=== PATIENT | male | born 1950 | race Caucasian/White ===

== ENCOUNTER 2018-09-11 08:58 | Emergency (ER) | payer MEDICARE, BC ==
[~2018-09-11] VITALS: Ht 170.2 cm; Wt 75.0 kg
[2018-09-11 09:27] LABS: BASOPHILS % (AUTO) 0 % (0-1); EOSINOPHILS # (AUTO) 0.1 X10'3 (0-0.9); EOSINOPHILS % (AUTO) 1.1 % (0-6); HEMATOCRIT 46.3 % (42.0-52.0); HEMOGLOBIN 15.5 g/dl (14.0-17.9); LYMPHOCYTES # (AUTO) 0.9 X10'3 (1.1-4.8); LYMPHOCYTES % (AUTO) 7.7 % (21-51); MEAN CORPUSCULAR HEMOGLOBIN 30.9 PG (27.0-31.0); MEAN CORPUSCULAR HGB CONC 33.5 % (33.0-36.5); MEAN CORPUSCULAR VOLUME 92.3 FL (78-98); MEAN PLATELET VOLUME 9.2 FL (7.4-10.4); MONOCYTES # (AUTO) 0.4 X10'3 (0-0.9); MONOCYTES % (AUTO) 3.9 % (2-12); NEUTROPHILS # (AUTO) 9.7 X10'3 (1.8-7.7); NEUTROPHILS % (AUTO) 87.3 % (42-75); PLATELET COUNT 232 X10'3 (140-440); RED BLOOD COUNT 5.02 X10'6 (4.70-6.10); RED CELL DISTRIBUTION WIDTH 13.3 % (11.5-14.5); WHITE BLOOD COUNT 11.2 X10'3 (4.5-11.0)
[2018-09-11 09:30] LABS: CLARITY,URINE CLEAR (Clear); COLOR,URINE YELLOW (Yellow); GLUCOSE, URINE NEGATIVE (Neg); KETONES,URINE NEGATIVE (Neg); LEUKOCYTE ESTERASE ,URINE NEGATIVE (Neg); NITRITES, URINE NEGATIVE (Neg); OCCULT BLOOD,URINE SMALL (Neg); PH,URINE 5.5 (4.8-8.0); PROTEIN,URINE NEGATIVE (Neg); UROBILINOGEN,URINE 0.2 E.U/dL (0.2-1.0)
[2018-09-11 09:33] LABS: UA COLLECTION TYPE VOIDED
[2018-09-11 09:35] LABS: BACTERIA,URINE FEW /HPF (Neg); HYALINE CASTS 0-3 /LPF (NEGATIVE); MUCUS STRANDS FEW /LPF (Neg); SQUAMOUS EPITHELIAL CELL,UR FEW /LPF (FEW); URIC ACID CRYSTALS 2+ /HPF (NEGATIVE); WBC,URINE 0-4 /HPF (0-4)
[2018-09-11] MEDS ORDERED: ondansetron 4mg rapidly disintigrating tab PO ONE (09:35)
[2018-09-11] MEDS ORDERED: ketorolac tromethamine 15mg/ml inj. IM ONE (09:35)
[2018-09-11 09:42] LABS: ALANINE AMINOTRANSFERASE 25 U/L (12-78); ALBUMIN 3.8 G/DL (3.4-5.0); ALBUMIN/GLOBULIN RATIO 0.9 (1.1-1.5); ALKALINE PHOSPHATASE 55 IU/L (46-116); ANION GAP 11 (8-16); ASPARTATE AMINO TRANSFERASE 16 U/L (10-37); BILIRUBIN,TOTAL 0.9 MG/DL (0.1-1.0); BLOOD UREA NITROGEN 20 MG/DL (7-18); BUN/CREATININE RATIO 9.5 (5.4-32.0); CALCIUM 10.6 MG/DL (8.5-10.1); CHLORIDE 99 MMOL/L (99-107); GLUCOSE 161 MG/DL (70-104); POTASSIUM 3.2 MMOL/L (3.5-5.1); SODIUM 136 MMOL/L (135-145); TOTAL CARBON DIOXIDE 26.4 MMOL/L (24-32); eGFR 32 ML/MIN
[2018-09-11] MEDS ORDERED: normal saline 1000ML IV soln IVB ONE (09:55)
[2018-09-11] MEDS ORDERED: HYDROcodone/acetaminophen 10/325mg tab PO ONE (09:55)
[2018-09-11] MEDS ORDERED: ondansetron/PF 4mg/2ml inj IV ONE (12:20)
[2018-09-11] MEDS ORDERED: iohexol 300 MG/1 ML 50ml polymer ONE (14:30)
[2018-09-11] MEDS ORDERED: proCHLORperazine 10 MG/2 ml inj IV PRN (14:40)
[2018-09-11] MEDS ORDERED: ondansetron/PF 4mg/2ml inj IV PRN (14:40)
[2018-09-11] MEDS ORDERED: meperidine/PF 25mg/ml syringe IV PRN ×3 (14:40)
[2018-09-11] MEDS ORDERED: ringers solution, lacted 1,000 ML IV SCH (14:40)
[2018-09-11] MEDS ORDERED: morphine 4 MG/ML inj SYRINge IV PRN ×2 (14:40)
[2018-09-11] MEDS ORDERED: sevoflurane 250ml liquid IH ONE (14:54)
[2018-09-11] MEDS ORDERED: fentaNYL/PF 50MCG/1 ML 2ML syringe ONE (14:59)
[2018-09-11] MEDS ORDERED: midazolam 2 mg/2 ml injection ONE (14:59)
[2018-09-11] MEDS ORDERED: propofol inj 20 ML IV ONE (15:01)
[2018-09-11] MEDS ORDERED: PHEN-824 PO (15:30)
[2018-09-11] MEDS ORDERED: CEPH250T PO (15:30)
[2018-09-11] MEDS ORDERED: FLO0.4C PO (15:30)
[2018-09-11 15:33] VITALS: BP 89/63
[2018-09-11 15:43] VITALS: BP 89/59
[2018-09-11 15:53] VITALS: BP 102/68
[2018-09-11 16:03] VITALS: BP 121/85
[2018-09-11 16:13] VITALS: BP 123/69
[2018-09-11 16:23] VITALS: BP 128/73
== END 2018-09-11 16:33 | disposition home or self-care (01) ==
LOC: ER 08:59
DX: N13.2 Hydronephrosis with renal and ureteral calculous obstruction (principal); K22.8 Other specified diseases of esophagus; R91.1 Solitary pulmonary nodule; R10.32 Left lower quadrant pain; E78.00 Pure hypercholesterolemia, unspecified; I10 Essential (primary) hypertension; Z87.442 Personal history of urinary calculi; Z79.899 Other long term (current) drug therapy
CPT/HCPCS: 36415; 52282; 74176; 80053; 81001; 85025; 96374; 99285; C2617; J0690; J2250; J2405; J2704; J3010; Q9967; A4402; C1758; J7030; J7120